=== PATIENT | female | born 1955 | race American Indian/Alaskan Native ===

== ENCOUNTER 2017-09-26 06:02 | Day surgery (SDC) | payer BC ==
[2017-09-26] MEDS ORDERED: NACL BACTERIOSTATIC INFILTRATI ONE (06:37)
[2017-09-26] MEDS ORDERED: LACTATED RINGERS 1,000 ML IV SCH (07:00)
[2017-09-26] MEDS ORDERED: VERSED IV NR (07:00)
--- NOTE | 2017-09-26 07:00 | Anesthesia Day of Surgery ---
Anesthesia Day of Surgery - Day of Surgery Patient Examined: Yes Patient H&P Reviewed: Yes Patient is NPO: Yes Beta Blockers: No
--- NOTE | 2017-09-26 07:00 | Anesthesia Consultation ---
Anesthesia Consult and Med Hx Date of service: 09/26/17 - Airway Anesthetic Teeth Evaluation: Good ROM Head & Neck: Adequate Mental/Hyoid Distance: Adequate Mallampati Class: Class I Intubation Access Assessment: Good - Pulmonary Exam CTA: Yes - Cardiac Exam Cardiac Exam: RRR - Pre-Operative Health Status ASA Pre-Surgery Classification: ASA1 Proposed Anesthetic Plan: General - Central Nervous System Hx Psychiatric Problems: No - Other Systems Hx Alcohol Use: Yes (occas) Hx Cancer: No
[2017-09-26] MEDS ORDERED: XYLOCAINE 1% 20 mL ONE (07:09)
[2017-09-26] MEDS ORDERED: MARCAINE 0.25% INFILTRATI ONE ×2 (07:09→07:44)
[2017-09-26] MEDS ORDERED: DECADRON ONE (07:09)
[2017-09-26] MEDS ORDERED: ANTIBIOTIC OINT TP ONE ×2 (07:10→09:02)
[2017-09-26] MEDS ORDERED: DILAUDID ONE (07:26)
[2017-09-26] MEDS ORDERED: DIPRIVAN 10 MG/ML IV ONE ×2 (07:26→08:15)
[2017-09-26] MEDS ORDERED: VERSED IV ONE (07:26)
[2017-09-26] MEDS ORDERED: XYLOCAINE MPF 2% ONE (07:27)
[2017-09-26] MEDS ORDERED: XYLOCAINE 1% 20 mL INFILTRATI ONE (07:44)
[2017-09-26] MEDS ORDERED: ANCEF/STERILE WATER 2 GM/20 ML 2 GM/20 ML SYRINGE IV ONE (07:45)
[2017-09-26] MEDS ORDERED: NACL 0.9% IR ONE (08:10)
[2017-09-26] MEDS ORDERED: LACTATED RINGERS 1,000 ML ONE (08:34)
[2017-09-26] MEDS ORDERED: DECADRON IV ONE (08:57)
--- NOTE | 2017-09-26 09:46 | Post Anesthesia Evaluation ---
- Post Anesthesia Evaluation Patient Participated: Yes Airway Patent: Yes Stable Respiratory Function: Yes Nausea/Vomiting: No Temp > 96.8F: Yes Pain Manageable: Yes Adequeate Hydration: Yes Anesthesia Complications: No Block Receding Appropriately: Not Applicable
[2017-09-26 10:38] VITALS: BP 115/76
--- NOTE | 2017-09-26 22:43 | XRay Report ---
FINAL REPORT EXAM: XR FOOT 2V RT HISTORY: Bunionectomy right foot TECHNIQUE: Two portable views of the right foot: AP and lateral projections. PRIORS: None. FINDINGS: Bandage material is noted overlying the fore/midfoot of the foot which mildly obscures soft tissue and osseous detail. Surgical changes from 1st metatarsal bunionectomy with osteotomy at the mid shaft of the metatarsal which is mildly laterally offset. Two cortical screws are intact. The alignment at the 1st metatarsophalangeal joint overall appears anatomic on this nonweightbearing image. There is decreased osseous mineralization. Mild degenerative changes of the interphalangeal joints and tarsal midfoot are present. IMPRESSION: Surgical changes from recent 1st metatarsal osteotomy/bunionectomy. There is no evidence of hardware complication.
--- NOTE | 2017-09-28 14:23 | Operative Report ---
PREOPERATIVE DIAGNOSES: 1. Painful bunion, right foot. 2. Painful hammertoe, second digit, right foot. POSTOPERATIVE DIAGNOSES: 1. Painful bunion, right foot. 2. Painful hammertoe, second digit, right foot. SURGICAL PROCEDURE: 1. Z- bunionectomy with internal fixation, right foot. 2. Arthroplasty, second digit, right foot. ANESTHESIA: Local with monitored anesthesia care and IV sedation. TOURNIQUET: Pneumatic ankle tourniquet, right ankle. ESTIMATED BLOOD LOSS: Less than 10 mL PROCEDURE IN DETAIL: The patient was brought into the operating room, placed on the operating table in supine position. Following intravenous sedation, the patient was given 2 grams of Ancef prophylactically. At this time, a well-padded pneumatic ankle tourniquet was placed to the 3 cm proximal to the medial malleoli and at this time attention was directed to the right foot in which a Darnell type block was performed with use of 12 mL of 1:1 mixture of 1% lidocaine plain plus 0.25% Marcaine plain after cleaned with alcohol. At this time, attention was redirected to the right foot, which was then scrubbed, prepped and draped in the usual aseptic manner. An Esmarch was used to exsanguinate the foot to 250 mmHg. At this time, the procedure was just begun. A 10 blade was just used to make a 7-8 cm linear longitudinal incision at the medial aspect of the first metatarsophalangeal joint followed by 2 similar converging elliptical incisions at the second digit proximal interphalangeal joint of the right foot. At this time, an ellipse of tissue was removed from the second digit and passed from the operative field. A transverse tenotomy capsulotomy was performed with a 10 blade. Attention was redirected to the first metatarsophalangeal joint with care taken to protect all vital neurovascular structures. At this time, tissue was dissected deep down to the first metatarsophalangeal joint capsule structures and with the capsulotomy was thus performed, thus identifying the enlarged first metatarsal head along with the base of the proximal phalanx has been enlarged. At this time, a 3 mm wedge of bone was removed from the medial aspect of the first metatarsal head along with a 2 mm wedge dorsally 2 mm wedge was removed at the medial aspect of the proximal phalanx. An adductor release was performed through a medial approach and was still need to be further reduction. Therefore, Z-osteotomy was performed with internal fixation used cannulated screws. All redundant bone was removed without incident while the foot was held in a more corrected position. Let it be noted ____ with the base dorsally, medially was performed at the capsular structures metatarsophalangeal joint to have derotated the toe. Area was flushed copiously with normal sterile saline. Deep closure was performed with 3-0 Vicryl followed by subcutaneous closure with 4.0 Vicryl. Subcuticular stitch was then performed with 4-0 Prolene. At this time, further dissection carried on with second digit and with capsulitis performed exposing the prominent proximal phalanx. At this time, the head was thus removed and passed from the operative field and contoured with a rotating football bur. The area was flushed copiously with normal sterile saline and the tendon structures were reapproximated with 4-0 Vicryl. Superficial closure was performed with simple interrupted stitches and the area was injected with 1 mL of dexamethasone phosphate and dressed with bacitracin ointment, Adaptic and sterile compressive dressing. The patient tolerated the procedure and anesthesia well. There was noted to be a prompt hyperemic response to all digits of the right foot. The patient tolerated the procedure well. The patient ____ will be placed in an Aircast boot and will be transferred to recovery room with vital signs will be monitored. The patient will be discharged home with both written and oral postoperative instructions. JOB# [id number] ZEYNEP/ELICEO
== END 2017-09-26 10:50 | disposition home or self-care (01) ==
LOC: OR 06:02
PROVIDERS: ATTEND Podiatrist Foot & Ankle Surgery
DX: M21.611 Bunion of right foot (principal); M20.41 Other hammer toe(s) (acquired), right foot
CPT/HCPCS: 28285; 28296; 73620; 88304; 88311; C1713; J0690; J1100; J1170; J2250; J2704; J7120